=== PATIENT | male | born 1995 | race Caucasian/White ===

== ENCOUNTER 2020-02-01 21:11 | Emergency (ER) | payer SELFPAY ==
[~2020-02-01] VITALS: Ht 177.8 cm; Wt 83.9 kg
[~2020-02-01 21:11] MED LIST: CLARITIN5 MG/5 ML PO; DELTASONE10 MG PO; ERYPED200 MG/5ML PO; PRELONE5 MG/5 ML PO; SEPTDS PO; VENTOLIN 02.5 MG/3 M INH
[2020-02-01 22:08] LABS: BASO # 0.1 10*3/uL (0.0-0.1); BASO % 0.7 % (0.0-1.0); EOS # 0.4 10*3/uL (0.0-0.4); EOS % 4.9 % (1.0-4.0); HEMATOCRIT 46.3 % (42.0-52.0); LYMPH # 3.2 10*3/uL (1.3-4.4); LYMPH % 37.9 % (27.0-41.0); MEAN CELL VOLUME 89.7 fl (80.0-94.0); MEAN CORPUSCULAR HGB 32.2 pg (27.0-31.0); MEAN CORPUSCULAR HGB CONC 35.9 g/dl (33.0-37.0); MEAN PLATELET VOLUME 9.5 fl (9.6-12.3); MONO # 0.8 10*3/uL (0.1-1.0); MONO % 9.1 % (3.0-9.0); NEUT % 47.2 % (47.0-73.0); PLATELET COUNT AUTOMATED 203 10*3/uL (130-400); RED BLOOD COUNT 5.16 10*6/uL (4.50-5.90); RED CELL DISTRI WIDTH 11.7 % (0-14.5); WHITE BLOOD COUNT 8.5 10*3/uL (4.8-10.8)
[2020-02-01 22:11] LABS: BILIRUBIN NEGATIVE (NEGATIVE); BLOOD TRACE-INTACT (NEGATIVE); CLARITY CLEAR (CLEAR); COLOR YELLOW (YELLOW); GLUCOSE NEGATIVE (NEGATIVE); KETONE NEGATIVE (NEGATIVE); LEUKO ESTERASE 2+ (NEGATIVE); NITRITE NEGATIVE (NEGATIVE); SPECIFIC GRAVITY 1.015 (1.005-1.030); UROBILINOGEN 0.2 E.U./dl (0.2-1.0)
[2020-02-01 22:19] LABS: WBC 16-20 wbc/hpf (0-5)
[2020-02-01 22:22] LABS: ALBUMIN 3.8 gm/dl (3.1-4.5); ALKALINE PHOSPHATASE 55 U/L (45-117); BUN 9 mg/dl (7-24); CHLORIDE 108 mmol/L (98-107); CREATININE 1.04 mg/dL (0.70-1.30); POTASSIUM 3.3 mmol/L (3.5-5.1); SGOT/AST 14 IU/L (3-35); SGPT/ALT 25 U/L (12-78); SODIUM 140 mmol/L (136-145); TOTAL PROTEIN 6.8 gm/dL (6.4-8.2)
== END 2020-02-02 00:28 | disposition home or self-care (01) ==
LOC: ED 21:11
PROVIDERS: Nurse Practitioner
DX: N35.919 Unspecified urethral stricture, male, unspecified site (principal); N39.0 Urinary tract infection, site not specified; R31.9 Hematuria, unspecified; Z91.040 Latex allergy status

== ENCOUNTER 2020-02-05 11:15 | Emergency (ER) | payer SELFPAY ==
[~2020-02-05] VITALS: Ht 177.8 cm; Wt 83.9 kg
== END 2020-02-05 11:53 | disposition home or self-care (01) ==
LOC: ED 11:15
DX: A74.9 Chlamydial infection, unspecified (principal); J45.909 Unspecified asthma, uncomplicated; Z79.899 Other long term (current) drug therapy

== ENCOUNTER 2021-08-05 10:03 | Emergency (ER) | payer OTHER ==
[2021-08-05 12:07] LABS: BASO % 0.4 % (0.0-1.0); EOS # 0.2 10*3/uL (0.0-0.4); EOS % 3.7 % (1.0-4.0); HEMATOCRIT 48.8 % (42.0-52.0); LYMPH # 1.2 10*3/uL (1.3-4.4); LYMPH % 21.7 % (27.0-41.0); MEAN CORPUSCULAR HGB 31.2 pg (27.0-31.0); MEAN CORPUSCULAR HGB CONC 34.2 g/dl (33.0-37.0); MEAN PLATELET VOLUME 9.7 fl (9.6-12.3); MONO # 0.7 10*3/uL (0.1-1.0); MONO % 12.8 % (3.0-9.0); NEUT # 3.3 10*3/uL (2.3-7.9); PLATELET COUNT AUTOMATED 207 10*3/uL (130-400); RED BLOOD COUNT 5.36 10*6/uL (4.50-5.90); RED CELL DISTRI WIDTH 12.1 % (0-14.5); WHITE BLOOD COUNT 5.4 10*3/uL (4.8-10.8)
[2021-08-05 12:22] LABS: ALBUMIN 3.7 gm/dl (3.1-4.5); ALKALINE PHOSPHATASE 64 U/L (45-117); BUN 8 mg/dl (7-24); CHLORIDE 112 mmol/L (98-107); CREATININE 1.04 mg/dL (0.70-1.30); POTASSIUM 3.8 mmol/L (3.5-5.1); SGOT/AST 12 IU/L (3-35); SGPT/ALT 23 U/L (12-78); SODIUM 141 mmol/L (136-145); TOTAL PROTEIN 6.8 gm/dL (6.4-8.2)
== END 2021-08-05 13:07 | disposition home or self-care (01) ==
LOC: ED 10:03
PROVIDERS: Nurse Practitioner Family
DX: B34.9 Viral infection, unspecified (principal); J02.9 Acute pharyngitis, unspecified

== ENCOUNTER 2021-11-26 07:23 | Emergency (ER) | payer SELFPAY ==
[~2021-11-26] VITALS: Ht 177.8 cm; Wt 90.7 kg
[2021-11-26 08:50] LABS: BASO % 0.3 % (0.0-1.0); EOS # 0.3 10*3/uL (0.0-0.4); EOS % 2.8 % (1.0-4.0); HEMATOCRIT 48.6 % (42.0-52.0); LYMPH # 1.5 10*3/uL (1.3-4.4); LYMPH % 14.6 % (27.0-41.0); MEAN CELL VOLUME 89.7 fl (80.0-94.0); MEAN CORPUSCULAR HGB 31.9 pg (27.0-31.0); MEAN CORPUSCULAR HGB CONC 35.6 g/dl (33.0-37.0); MEAN PLATELET VOLUME 9.7 fl (9.6-12.3); NEUT # 7.2 10*3/uL (2.3-7.9); PLATELET COUNT AUTOMATED 199 10*3/uL (130-400); RED BLOOD COUNT 5.42 10*6/uL (4.50-5.90); RED CELL DISTRI WIDTH 12.5 % (0-14.5)
[2021-11-26 09:08] LABS: ALKALINE PHOSPHATASE 64 U/L (45-117); BUN 12 mg/dl (7-24); CHLORIDE 109 mmol/L (98-107); CREATININE 0.83 mg/dL (0.70-1.30); POTASSIUM 3.7 mmol/L (3.5-5.1); SGOT/AST 16 IU/L (3-35); SGPT/ALT 25 U/L (12-78); SODIUM 139 mmol/L (136-145)
[2021-11-26] MEDS ORDERED: ZITHROMAX250 MG PO (13:55)
[2021-11-26] MEDS ORDERED: PREDNISONE10 MG PO (13:55)
== END 2021-11-26 14:15 | disposition home or self-care (01) ==
LOC: ED 07:23
PROVIDERS: Emergency Medicine
DX: T78.3XXA Angioneurotic edema, initial encounter (principal); Y92.89 Other specified places as the place of occurrence of the external cause

== ENCOUNTER 2022-06-15 09:44 | Emergency (ER) | payer SELFPAY ==
[~2022-06-15] VITALS: Ht 177.8 cm; Wt 93.0 kg
[~2022-06-15 09:44] MED LIST changes: +PREDNISONE10 MG PO; +ZITHROMAX250 MG PO
[2022-06-15 10:42] LABS: BASO % 0.5 % (0.0-1.0); EOS % 0.3 % (1.0-4.0); LYMPH % 26.3 % (27.0-41.0); MEAN CELL VOLUME 91.1 fl (80.0-94.0); MEAN CORPUSCULAR HGB 32.3 pg (27.0-31.0); MEAN CORPUSCULAR HGB CONC 35.4 g/dl (33.0-37.0); MEAN PLATELET VOLUME 9.7 fl (9.6-12.3); MONO # 0.6 10*3/uL (0.1-1.0); MONO % 17.3 % (3.0-9.0); NEUT % 55.3 % (47.0-73.0); PLATELET COUNT AUTOMATED 169 10*3/uL (130-400); RED BLOOD COUNT 5.05 10*6/uL (4.50-5.90); WHITE BLOOD COUNT 3.7 10*3/uL (4.8-10.8)
[2022-06-15 10:57] LABS: ACT PARTIAL THROMBO TIME 32.8 SECONDS (20.0-32.1)
[2022-06-15 11:00] LABS: ALKALINE PHOSPHATASE 56 U/L (46-116); BUN 10 mg/dl (9-23); CHLORIDE 102 mmol/L (98-107); CREATININE 0.87 mg/dL (0.70-1.30); LIPASE 46 U/L (12-53); POTASSIUM 3.4 mmol/L (3.4-5.1); SGPT/ALT 25 U/L (10-49); SODIUM 137 mmol/L (136-145)
[2022-06-15 11:01] LABS: TOTAL PROTEIN 6.6 gm/dL (6.0-8.0)
[2022-06-15] MEDS ORDERED: TAMIFLU 75MG CA75 MG PO (11:17)
[2022-06-15] MEDS ORDERED: ONDANSETRON4 MG SL (11:19)
== END 2022-06-15 11:21 | disposition home or self-care (01) ==
LOC: ED 09:44
PROVIDERS: Family Medicine
DX: J10.1 Influenza due to other identified influenza virus with other respiratory manifestations (principal); Z90.89 Acquired absence of other organs

== ENCOUNTER 2022-12-13 02:39 | Emergency (ER) | payer SELFPAY ==
[~2022-12-13] VITALS: Ht 177.8 cm; Wt 93.0 kg
[~2022-12-13 02:39] MED LIST changes: +ONDANSETRON4 MG SL; +TAMIFLU 75MG CA75 MG PO
[2022-12-13] MEDS ORDERED: IBUPROFEN600 MG PO (04:59)
== END 2022-12-13 05:02 | disposition home or self-care (01) ==
LOC: ED 02:39
DX: S39.012A Strain of muscle, fascia and tendon of lower back, initial encounter (principal); J45.909 Unspecified asthma, uncomplicated; Z98.890 Other specified postprocedural states; V89.2XXA Person injured in unspecified motor-vehicle accident, traffic, initial encounter; Y93.89 Activity, other specified; Y92.410 Unspecified street and highway as the place of occurrence of the external cause; Y99.8 Other external cause status

== ENCOUNTER 2022-12-21 21:52 | Emergency (ER) | payer SELFPAY ==
[~2022-12-21] VITALS: Ht 180.3 cm; Wt 93.0 kg
[~2022-12-21 21:52] MED LIST changes: +IBUPROFEN600 MG PO
[2022-12-21 22:16] LABS: BASO % 0.3 % (0.0-1.0); EOS # 0.3 10*3/uL (0.0-0.4); EOS % 3.7 % (1.0-4.0); HEMATOCRIT 48.3 % (42.0-52.0); LYMPH # 1.1 10*3/uL (1.3-4.4); LYMPH % 12.1 % (27.0-41.0); MEAN CELL VOLUME 89.8 fl (80.0-94.0); MEAN CORPUSCULAR HGB 31.8 pg (27.0-31.0); MEAN CORPUSCULAR HGB CONC 35.4 g/dl (33.0-37.0); MEAN PLATELET VOLUME 9.4 fl (9.6-12.3); MONO # 0.6 10*3/uL (0.1-1.0); MONO % 6.6 % (3.0-9.0); NEUT # 7.1 10*3/uL (2.3-7.9); PLATELET COUNT AUTOMATED 208 10*3/uL (130-400); RED BLOOD COUNT 5.38 10*6/uL (4.50-5.90); RED CELL DISTRI WIDTH 11.9 % (0-14.5); WHITE BLOOD COUNT 9.2 10*3/uL (4.8-10.8)
[2022-12-21 22:27] LABS: ACT PARTIAL THROMBO TIME 27.6 SECONDS (20.0-32.1)
[2022-12-21 22:41] LABS: ALKALINE PHOSPHATASE 71 U/L (46-116); BUN 12 mg/dl (9-23); CHLORIDE 107 mmol/L (98-107); POTASSIUM 3.4 mmol/L (3.4-5.1); SGPT/ALT 21 U/L (10-49)
== END 2022-12-22 02:52 | disposition home or self-care (01) ==
LOC: ED 21:52
PROVIDERS: Emergency Medicine
DX: R10.13 Epigastric pain (principal); R07.89 Other chest pain; R11.10 Vomiting, unspecified; Z79.899 Other long term (current) drug therapy

== ENCOUNTER 2023-01-27 15:03 | Emergency (ER) | payer SELFPAY ==
[~2023-01-27] VITALS: Wt 90.7 kg
[2023-01-27] MEDS ORDERED: PREDNISONE20 M1 PO (17:03)
== END 2023-01-27 17:09 | disposition home or self-care (01) ==
LOC: ED 15:03
DX: L23.7 Allergic contact dermatitis due to plants, except food (principal); J45.909 Unspecified asthma, uncomplicated; Z98.890 Other specified postprocedural states

== ENCOUNTER 2025-04-16 14:54 | Emergency (ER) | payer SELFPAY ==
[~2025-04-16] VITALS: Ht 177.8 cm; Wt 95.3 kg
[~2025-04-16 14:54] MED LIST changes: +PREDNISONE20 M1 PO
[2025-04-16] MEDS ORDERED: PREDNISONE20 M1 PO (16:06)
[2025-04-17] MEDS ORDERED: HYDROCORTISONE-28 GM T (19:19)
[2025-04-17] MEDS ORDERED: VISTARIL25 MG PO (19:19)
== END 2025-04-16 17:04 | disposition home or self-care (01) ==
LOC: ED 14:54
DX: L25.9 Unspecified contact dermatitis, unspecified cause (principal)

== ENCOUNTER 2025-04-17 17:42 | Emergency (ER) | payer SELFPAY ==
[~2025-04-17] VITALS: Ht 177.8 cm; Wt 95.3 kg
[2025-04-17] MEDS ORDERED: Water, Sterile 10 ML VIAL ONE (19:07)
[2025-04-17] MEDS ORDERED: VISTARIL25 MG PO (19:19)
[2025-04-17] MEDS ORDERED: HYDROCORTISONE-28 GM T (19:19)
== END 2025-04-17 19:30 | disposition home or self-care (01) ==
LOC: ED 17:42
DX: L23.7 Allergic contact dermatitis due to plants, except food (principal)